=== PATIENT | female | born 1945 | race Caucasian/White ===

== ENCOUNTER 2024-01-06 16:51 | Inpatient (IN) | payer MEDICARE ==
[2024-01-06] MEDS ORDERED: Meclizine HCl 25 MG TAB PO PRN (21:06)
[2024-01-06] MEDS ORDERED: Ondansetron ODT 4 MG TAB SL PRN (21:12)
[2024-01-06] MEDS ORDERED: Bisacodyl 5 MG TAB PO PRN (21:12)
[2024-01-06] MEDS ORDERED: Acetaminophen 325 MG TAB PO PRN (21:12)
[2024-01-06] MEDS ORDERED: Dextrose 50% Abboject 50 ML SYRINGE SLOW IVP PRN (21:16)
[2024-01-06] MEDS ORDERED: Glucagon 1 MG/ML KIT IM PRN (21:16)
[2024-01-06] MEDS: HumaLOG 300 UNITS/3 ML VIAL SC PRN (22:27)
[2024-01-07] MEDS: Levothyroxine 150 MCG TAB PO SCH (05:44)
[2024-01-07 06:12] LABS: #Eosinphils 0.2 thou/uL (0.0-0.7); #Lymphocytes 0.9 thou/uL (1.20-3.40); #Monocytes 0.8 thou/uL (0.11-0.59); #Neutrophils 2.8 thou/uL (1.40-6.50); %Basophils 0.6 % (0.0-1.0); %Eosinophils 3.5 % (0.0-10.0); %Lymphocytes 19.5 % (21.0-51.0); %Monocytes 16.1 % (0.0-10.0); %Neutrophils 60.3 % (42.0-75.0); Hematocrit 33.8 % (36.0-47.0); Hemoglobin 10.4 g/dL (12.0-16.0); Mean Corpuscular HGB CONC 30.8 g/dL (32.0-36.0); Mean Corpuscular Hemoglobin 27.7 pg (27.0-31.0); Mean Corpuscular Volume 89.8 fl (78.0-98.0); Mean Platelet Volume 7.7 fL (7.4-10.4); Platelet Count 261 10x3/uL (130-400); RBC Distribution Width 15.1 % (11.5-14.5); Red Blood Cell (RBC) Count 3.76 mill/uL (4.20-5.40); White Blood Cell (WBC) Count 4.6 10x3/uL (4.8-10.8)
[2024-01-07 06:24] LABS: ALT (SGPT) 8 U/L (8-55); AST (SGOT) 12 U/L (5-34); Albumin 2.5 g/dL (3.4-4.8); Alkaline Phosphatase 26 U/L (40-110); Anion Gap 17 mmol/L (10-20); BUN (Urea Nitrogen) 22 mg/dL (9.8-20.1); Bilirubin, Total 0.6 mg/dL (0.2-1.2); Calc. Creatinine Clearance 64 mL/min (70-130); Calcium 8.6 mg/dL (7.8-10.44); Carbon Dioxide 18 mmol/L (23-31); Chloride 103 mmol/L (98-107); Estimated GFR 45; Globulin 3.4 g/dL (2.4-3.5); Glucose 158 mg/dL (83-110); Potassium 3.9 mmol/L (3.5-5.1); Protein, Total 5.9 g/dL (5.8-8.1); Sodium 134 mmol/L (136-145)
[2024-01-07] MEDS: Icosapent Ethyl 1 GM CAPSULE PO SCH (07:44)
[2024-01-07] MEDS: Cholecalciferol 1,000 UNITS (25 MCG) TAB PO SCH (08:40)
[2024-01-07] MEDS: Ranolazine ER 500 MG TAB PO SCH (08:42)
[2024-01-07] MEDS: Cyanocobalamin (Vitamin B-12) 1,000 MCG TAB PO SCH (08:43)
[2024-01-07] MEDS: Clopidogrel Bisulfate 75 MG TAB PO SCH (08:43)
[2024-01-07] MEDS: Spironolactone 25 MG TAB PO SCH (08:43)
[2024-01-07] MEDS: Metoprolol Tartrate 25 MG TAB PO SCH (08:43)
[2024-01-07] MEDS: Empagliflozin 10 MG TAB PO SCH (08:44)
[2024-01-07] MEDS: Pantoprazole DR 40 MG TAB PO SCH (08:44)
[2024-01-07] MEDS: Amlodipine 5 MG TAB PO SCH (08:44)
[2024-01-07] MEDS: Isosorbide Mononitrate 60 MG ER.TAB PO SCH (08:44)
[2024-01-07] MEDS: Aspirin 81 mg Enteric Coated Tablet PO SCH (08:45)
[2024-01-07] MEDS: Rivaroxaban 10 MG TAB PO SCH (08:45)
[2024-01-07] MEDS: Senokot S 8.6-50 MG TAB PO SCH (08:48)
[2024-01-07] MEDS ORDERED: Non-Formulary Item 1 EACH (Valsartan [Valsartan] 320 MG Tablet) PO SCH (09:00)
[2024-01-07] MEDS ORDERED: Pantoprazole 40 MG GRANULES PACKET PO SCH (09:00)
[2024-01-07] MEDS: guaiFENesin ER 600 MG TAB PO SCH (09:28)
[2024-01-07] MEDS: Benzonatate 100 MG CAP PO PRN (09:28)
[2024-01-07] MEDS: Loratadine 10 MG TAB PO SCH (11:01)
[2024-01-07] MEDS: HumaLOG 300 UNITS/3 ML VIAL SC PRN (11:50)
[2024-01-07] MEDS: CO Q-10 CAPSULE 50 MG PO SCH (20:13)
[2024-01-07] MEDS: Atorvastatin Calcium 40 MG TAB PO SCH (20:13)
[2024-01-07] MEDS: Fenofibrate Nanocrystallized 145 MG TAB PO SCH (20:16)
[2024-01-07] MEDS ORDERED: Loratadine 10 MG TAB PO SCH (21:00)
[2024-01-08] MEDS: Loratadine 10 MG TAB PO SCH (08:46)
[2024-01-08] MEDS ORDERED: Amlodipine 5 MG TAB PO SCH (12:22)
[2024-01-08] MEDS ORDERED: Metoprolol Tartrate 25 MG TAB PO SCH (12:22)
[2024-01-08] MEDS ORDERED: Spironolactone 25 MG TAB PO SCH (12:22)
[2024-01-08] MEDS: Amlodipine 5 MG TAB PO SCH (13:24)
[2024-01-08] MEDS: Metoprolol Tartrate 25 MG TAB PO SCH ×2 (13:25→20:18)
[2024-01-08] MEDS: Spironolactone 25 MG TAB PO SCH (13:25)
[2024-01-09] MEDS: Amlodipine 5 MG TAB PO SCH (08:44)
[2024-01-09] MEDS: Spironolactone 25 MG TAB PO SCH (08:48)
[2024-01-10 09:29] LABS: #Eosinphils 0.2 thou/uL (0.0-0.7); #Lymphocytes 0.9 thou/uL (1.20-3.40); #Monocytes 0.7 thou/uL (0.11-0.59); #Neutrophils 4.9 thou/uL (1.40-6.50); %Basophils 0.6 % (0.0-1.0); %Eosinophils 2.4 % (0.0-10.0); %Lymphocytes 13.8 % (21.0-51.0); %Monocytes 10.4 % (0.0-10.0); %Neutrophils 72.8 % (42.0-75.0); Hematocrit 36.1 % (36.0-47.0); Hemoglobin 11.1 g/dL (12.0-16.0); Mean Corpuscular HGB CONC 30.8 g/dL (32.0-36.0); Mean Corpuscular Hemoglobin 27.3 pg (27.0-31.0); Mean Corpuscular Volume 88.6 fl (78.0-98.0); Mean Platelet Volume 7.3 fL (7.4-10.4); Platelet Count 321 10x3/uL (130-400); Red Blood Cell (RBC) Count 4.08 mill/uL (4.20-5.40); White Blood Cell (WBC) Count 6.7 10x3/uL (4.8-10.8)
[2024-01-10 09:44] LABS: Troponin I 0.034 ng/mL (< 0.028)
[2024-01-10 09:44] LABS: ALT (SGPT) 12 U/L (8-55); AST (SGOT) 14 U/L (5-34); Albumin 2.7 g/dL (3.4-4.8); Alkaline Phosphatase 28 U/L (40-110); Anion Gap 17 mmol/L (10-20); BUN (Urea Nitrogen) 24 mg/dL (9.8-20.1); Bilirubin, Total 0.7 mg/dL (0.2-1.2); Calc. Creatinine Clearance 59 mL/min (70-130); Calcium 9.2 mg/dL (7.8-10.44); Carbon Dioxide 19 mmol/L (23-31); Chloride 102 mmol/L (98-107); Estimated GFR 40; Globulin 3.6 g/dL (2.4-3.5); Glucose 257 mg/dL (83-110); Potassium 4.2 mmol/L (3.5-5.1); Protein, Total 6.3 g/dL (5.8-8.1); Sodium 134 mmol/L (136-145)
[2024-01-10] MEDS ORDERED: Insulin Glargine 10 UNITS in PREFILLED SYR 1 EACH SC SCH (11:15)
[2024-01-10] MEDS ORDERED: Dextrose 5% in Water 1,000 ML IV PRN (11:30)
[2024-01-10] MEDS: Lantus 1000 UNITS/10 ML VIAL SC SCH (12:11)
[2024-01-10 12:57] LABS: Troponin I 0.031 ng/mL (< 0.028)
[2024-01-10] MEDS: Guaifenesin DM 100-10/5 ML UDCUP PO PRN (21:04)
[2024-01-11] MEDS: Lantus 1000 UNITS/10 ML VIAL SC SCH (08:24)
[2024-01-11] MEDS ORDERED: Insulin Glargine 10 UNITS in PREFILLED SYR 1 EACH SC SCH (09:00)
[2024-01-11] MEDS ORDERED: Senokot S 8.6-50 MG TAB PO PRN (10:23)
[2024-01-11] MEDS: Loperamide HCl 2 MG CAP PO PRN (11:31)
[2024-01-12] MEDS: Fluticasone Propionate Nasal Spray 16 gm Bottle NASAL SCH (08:17)
[2024-01-12] MEDS: Lantus 1000 UNITS/10 ML VIAL SC SCH (20:41)
[2024-01-13] MEDS: Spironolactone 25 MG TAB PO SCH (08:18)
[2024-01-13] MEDS: Lantus 1000 UNITS/10 ML VIAL SC SCH (08:20)
[2024-01-14 06:12] LABS: Anion Gap 15 mmol/L (10-20); BUN (Urea Nitrogen) 21 mg/dL (9.8-20.1); Calc. Creatinine Clearance 53 mL/min (70-130); Carbon Dioxide 22 mmol/L (23-31); Chloride 103 mmol/L (98-107); Estimated GFR 41; Glucose 158 mg/dL (83-110); Sodium 136 mmol/L (136-145)
[2024-01-14 07:51] LABS: #Basophils 0.03 10x3/uL (0.0-0.2); #Eosinphils 0.18 10x3/uL (0.0-0.5); #Monocytes 0.68 10x3/uL (0.0-1.1); #Neutrophils 4.14 10x3/uL (1.5-8.4); %Basophils 0.5 % (0.0-2.0); %Eosinophils 2.8 % (0.0-6.0); %Lymphocytes 20.1 % (18.0-47.0); %Monocytes 10.6 % (0.0-10.0); %Neutrophils 64.4 % (40.0-75.0); Hematocrit 31.1 % (34.9-44.5); Hemoglobin 10.4 g/dL (12.0-15.5); Mean Corpuscular HGB CONC 33.4 g/dL (32.0-36.0); Mean Corpuscular Hemoglobin 29.8 pg (27.0-33.0); Mean Corpuscular Volume 89.1 fL (81.6-98.3); Mean Platelet Volume 10.4 fL (7.4-10.4); Platelet Count 362 10x3/uL (150-450); RBC Distribution Width 16.7 % (11.5-14.5); Red Blood Cell (RBC) Count 3.49 10x6/uL (3.90-5.03); White Blood Cell (WBC) Count 6.4 10x3/uL (3.5-10.5)
[2024-01-14 07:56] LABS: #Lymphocytes 1.3 10x3/uL (0.7-4.9)
[2024-01-15 19:19] LABS: Bilirubin Negative (Negative); Blood, Urine Small (Negative); Glucose, Urine (Dipstick) >=1000 mg/dL (Negative); Ketone, Urine Negative (Negative); Leukocyte Small (Negative); Nitrite Positive (Negative); Protein, Urine (Dipstick) Negative (Neg-Trace); Urobilinogen 0.2 mg/dL (Less than 2)
[2024-01-15 20:03] LABS: Bacteria/HPF 1+ HPF (None Seen); CAUTI Indications for Culture Dysuria,urgency,freq; Clarity Cloudy (Clear); RBC/HPF 0-3 HPF (0-3); Renal Epithelial 0-3 HPF (None Seen); Squamous Epithelial 0-3 HPF (0-3); WBC/HPF Greater Than 50 HPF (0-3)
[2024-01-15 20:04] LABS: Urine Culture Reflex Yes Yes
[2024-01-15] MEDS: Phenazopyridine HCl 95 MG TAB PO PRN (20:28)
[2024-01-16 06:42] VITALS: BMI 36.1
[2024-01-16] MEDS: Cephalexin 500 MG CAP PO SCH (20:07)
[2024-01-16] MEDS: Lantus 1000 UNITS/10 ML VIAL SC SCH (20:12)
[2024-01-17 05:31] LABS: #Eosinphils 0.1 thou/uL (0.0-0.7); #Lymphocytes 1.1 thou/uL (1.20-3.40); #Monocytes 0.8 thou/uL (0.11-0.59); %Basophils 0.8 % (0.0-1.0); %Eosinophils 1.9 % (0.0-10.0); %Lymphocytes 18.8 % (21.0-51.0); %Monocytes 12.5 % (0.0-10.0); Hematocrit 32.4 % (36.0-47.0); Hemoglobin 10.1 g/dL (12.0-16.0); Mean Corpuscular HGB CONC 31.2 g/dL (32.0-36.0); Mean Corpuscular Hemoglobin 27.8 pg (27.0-31.0); Mean Corpuscular Volume 89.2 fl (78.0-98.0); Mean Platelet Volume 7.4 fL (7.4-10.4); Platelet Count 275 10x3/uL (130-400); RBC Distribution Width 15.1 % (11.5-14.5); Red Blood Cell (RBC) Count 3.63 mill/uL (4.20-5.40); White Blood Cell (WBC) Count 6.1 10x3/uL (4.8-10.8)
[2024-01-17 05:47] LABS: Anion Gap 14 mmol/L (10-20); BUN (Urea Nitrogen) 23 mg/dL (9.8-20.1); Calc. Creatinine Clearance 55 mL/min (70-130); Carbon Dioxide 21 mmol/L (23-31); Chloride 103 mmol/L (98-107); Estimated GFR 38; Glucose 124 mg/dL (83-110); Potassium 4.2 mmol/L (3.5-5.1); Sodium 134 mmol/L (136-145)
[2024-01-17] MEDS: Lidocaine 1% PF 5 ML VIAL FS PRN (16:05)
[2024-01-17] MEDS: cefTRIAXone (ROCEPHIN) 1 GM VIAL IM SCH (16:06)
[2024-01-18 06:02] LABS: Anion Gap 13 mmol/L (10-20); BUN (Urea Nitrogen) 24 mg/dL (9.8-20.1); Calc. Creatinine Clearance 61 mL/min (70-130); Calcium 8.9 mg/dL (7.8-10.44); Carbon Dioxide 21 mmol/L (23-31); Chloride 105 mmol/L (98-107); Estimated GFR 43; Glucose 143 mg/dL (83-110); Sodium 135 mmol/L (136-145)
[2024-01-18] MEDS ORDERED: Cefdinir 300 MG CAP PO SCH (13:39)
[2024-01-18] MEDS: Cefdinir 300 MG CAP PO SCH ×2 (14:58→20:24)
[2024-01-19 05:17] VITALS: BMI 33.9
[2024-01-19 09:42] VITALS: BP 132/82; TEMP 97.5
== END 2024-01-19 13:37 | disposition home health service (06) | DRG 561 ==
LOC: NAV ACUTE 18:18
PROVIDERS: ADMIT Family Medicine; ATTEND Family Medicine
DX: S82.832D Other fracture of upper and lower end of left fibula, subsequent encounter for closed fracture with routine healing (principal); X58.XXXD Exposure to other specified factors, subsequent encounter; I25.10 Atherosclerotic heart disease of native coronary artery without angina pectoris; N30.90 Cystitis, unspecified without hematuria; E78.5 Hyperlipidemia, unspecified; K21.9 Gastro-esophageal reflux disease without esophagitis; E03.9 Hypothyroidism, unspecified; Z90.710 Acquired absence of both cervix and uterus; Z95.5 Presence of coronary angioplasty implant and graft; Z90.49 Acquired absence of other specified parts of digestive tract; Z90.89 Acquired absence of other organs; Z98.890 Other specified postprocedural states; Z79.82 Long term (current) use of aspirin; Z79.899 Other long term (current) drug therapy; R53.81 Other malaise; N18.30 Chronic kidney disease, stage 3 unspecified; E11.22 Type 2 diabetes mellitus with diabetic chronic kidney disease; I12.9 Hypertensive chronic kidney disease with stage 1 through stage 4 chronic kidney disease, or unspecified chronic kidney disease; J06.9 Acute upper respiratory infection, unspecified
CPT/HCPCS: 36415; 36416; 71046; 80048; 80053; 81001; 83880; 84484; 85025; 87077; 87086; 87186; J0696; J1815